=== PATIENT | male | born 1970 | race Caucasian/White ===

== ENCOUNTER 2018-06-22 12:31 | Emergency (ER) | payer MEDICARE ==
[~2018-06-22] VITALS: Ht 175.3 cm; Wt 77.1 kg
[~2018-06-22 12:31] MED LIST: NAPR500T8 PO
[2018-06-22 13:18] VITALS: BP 154/100
[2018-06-22] MEDS ORDERED: HYDROcodone/APAP 5/325MG 1 TAB TABLET PO ONE (14:30)
--- NOTE | 2018-06-22 14:55 | PHYS DOC ---
Past Medical History Past Medical History: Hypertension, Other Additional Past Medical Histor: TBI Past Surgical History: Tonsillectomy, Other Additional Past Surgical Histo: BILATERAL ANKLE Smoking: Less than 1pk/day Alcohol Use: None Drug Use: None Adult General Chief Complaint Chief Complaint: MECHANICAL FALL HPI HPI 48-year-old male presents to ER via POV with his father for mechanical fall which occurred yesterday. Patient reports he was walking into the bathroom when he lost his balance causing him to fall backwards striking his back on the bathtub. Patient reports he believes he struck the back of his head but denies having any loss of consciousness or headache. Patient's father Ed who patient resides with is at bedside who reports patient has had TBI in the past- he reports he assists with daily activity and care. He denies patient with any change in behavior or mental status. He denies patient having any confusion, vomiting, or unsteady gait. Pt has c/o lt side mid back pain reporting he struck his back on the bathtub. Patient reports it does hurt when he takes a deep breath but he denies any shortness of air, cough, spitting up blood, or chest pain. Patient's father reports patient had taken 800 mg ibuprofen this morning around 9 AM but has had no improvement in pain. Patient is a daily smoker of cigarettes. Patient's father denies he has had any type of fever, incontinence of bowel or bladder, or swelling in extremities. Review of Systems Review of Systems Constitutional: Denies fever. Denies lethargy Eyes: Denies change in visual acuity, redness, or eye pain [] HENT: Reports hitting back of head possibly on bathtub- denies SINGER, eye pain, or vision changes Respiratory: Denies cough or shortness of breath. Reports increased lt side back pain with deep breath Cardiovascular: Denies CP GI: Denies abdominal pain, nausea, vomiting. Denies incontinence of bowel/ bladder or saddle anesthesia : Denies dysuria or hematuria [] Musculoskeletal: Denies neck or joint pain. Reports lt side mid back pain Integument: Reports abrasion lt side mid back where he fell into bathtub Neurologic: Denies headache, focal weakness or sensory changes. Denies dizziness /lightheadedness Pt's father denies pt with change in MS or behavior. Denies pt with confusion All other systems were reviewed and found to be within normal limits, except as documented in this note. Current Medications Current Medications Current Medications Medications (Trade) Dose Ordered Sig/[facility] Start Time Stop Time Status Last Admin Dose Admin Acetaminophen/ Hydrocodone Bitart (Lortab 5/325) 1 tab 1X ONCE 06/22/18 14:30 06/22/18 14:31 DC 06/22/18 14:30 1 TAB Lidocaine (Lidoderm) 1 patch DAILY 06/22/18 15:00 06/22/18 15:37 DC 06/22/18 15:00 1 PATCH Allergies Allergies Allergies Coded Allergies Type Severity Reaction Last Updated Verified No Known Drug Allergies 06/22/18 No Physical Exam Physical Exam Constitutional: Well developed, well nourished, no acute distress, non-toxic appearance. Patient speaking in full clear sentences HENT: Normocephalic, no tenderness on palpation of posterior head where patient reported he possibly struck his head during fall. No visible injury on posterior head or swelling. Bilateral external ears normal, oropharynx moist, no oral exudates, nose normal. [] Eyes: 3mm PERRLA, EOMI- no pain with eye movements, conjunctiva normal, no discharge. [] Neck: Normal range of motion, no tenderness-no midline cervical tenderness on palpation or palpable deformity, supple. Trachea midline Cardiovascular:Heart rate regular rhythm, no murmur [] Lungs & Thorax: Bilateral breath sounds clear to auscultation. Initially patient was reluctant to take deep breaths due to reports of increased pain with deep breathing. With encouragement patient was able to take deep breath and air movement was audible in all lung griffith Abdomen: Bowel sounds normal, soft, no tenderness Skin: Warm, dry, no erythema, no rash. [] Back: Tender to palpation left side thoracic back with abrasion at site-no swelling or crepitus, no CVA tenderness.Full ROM of back. No midline spinal tenderness on palp. or palp. deformity Extremities: Pelvis stable and nontender. No tenderness, no cyanosis, no clubbing, ROM intact, no edema. [] Neurologic: Alert and oriented X 3, normal motor function, normal sensory function, no focal deficits noted. [] Psychologic: Affect normal, judgement normal, mood normal. [] Current Patient Data Vital Signs Vital Signs Date Time Temp Pulse Resp B/P (MAP) Pulse Ox O2 Delivery O2 Flow Rate FiO2 06/22/18 14:30 16 99 Room Air 06/22/18 13:18 98.4 104 154/100 (118) 98.4 EKG EKG [] Radiology/Procedures Radiology/Procedures PROCEDURE: CHEST PA & LATERAL Chest, 2 views, 06/22/2018: HISTORY: Fall, left upper back pain The heart size and pulmonary vascularity are normal. There are bibasilar linear parenchymal opacities suggesting scarring versus atelectasis. No pulmonary consolidation is seen. There is no evidence of pleural fluid or pneumothorax. IMPRESSION: Mild bibasilar linear scarring and/or atelectasis. Electronically signed by: Govind Whitt MD (06/22/2018 2:54 PM) [facility] DICTATED and SIGNED BY: GOVIND WHITT MD DATE: 06/22/18 5308 Course & Med Decision Making Course & Med Decision Making Pertinent Imaging studies reviewed. (See chart for details) Pt was given dose of [place] and had Lidocaine patch applied to lt mid side back while in ER. Patient has remained stable while in the ER with no change in behavior or mental status. Discussed x-ray results with patient and his father with no acute findings. Discussed plans for home discharge with patient to continue use of Tylenol and/or ibuprofen as needed for pain as directed on container. Prescription for lidocaine patches would be provided with education on use. Incentive spirometer was provided with education. Smoking cessation was discussed. Pt is able to speak in full sentences with no resp. distress. Pt has equal/nonlabored resp. and has had no cough. Education provided on s&s to return to ER for. With pt reporting he struck back of head during fall did educate pt's father on head injury precautions. With pt falling yest. and having no LOC/change in MS or c/o SINGER/dizziness discussed monitoring pt for changes with his father and he was comfortable with no head CT during this ER visit. Discharge instructions were discussed and patient to follow-up with primary care physician in next 2-3 days for reevaluation sooner with any concerns. Patient and his father both had concerns as patient was unable to sleep last night due to pain so small quantity of [place] will be provided with discharge paperwork. Education provided on medication as well as both were advised on use of walker while ambulating to prevent further falls- both advised of risk of falls with [place] and that slow position changes advised- pt' s father reports he plans to keep medication and if pt needs he would closely monitor and assist pt to avoid falls. Pt's case and plan of care was discussed with Dr. Roberson. Benjy Disclaimer Benjy Disclaimer This electronic medical record was generated, in whole or in part, using a voice recognition dictation system. Departure Departure Impression: Primary Impression: Fall Additional Impressions: Back pain Contusion Head injury Disposition: HOME, SELF-CARE Condition: STABLE Referrals: BOB CORDERO (PCP) Patient Instructions: Back Pain, Adult, Contusion, Fall Prevention and Home Safety, Head Injury, Adult, Incentive Spirometer, Smoking Cessation Additional Instructions: Use incentive spirometer as discussed. Avoid smoking cigarettes. You can take [id number] Tylenol and/or ibuprofen as directed on container for pain control. Avoid Tylenol if taking prescribed [place] tablets. Use walker when walking to avoid further falls. With any concerns return to emergency department for reevaluation or follow up with primary care physician. Scripts Lidocaine (Lidocaine) 1 Each Adh..patch 1 EACH TP q 12hrs prn, #5 PATCH 0 Refills 5% patch Prov: MAGALI CHINCHILLA APRN 06/22/18 Hydrocodone/Apap 5-325 (NORCO 5-325 TABLET) 1 Each Tablet 1 TAB PO PRN Q6HRS PRN for PAIN, #6 TAB 0 Refills Prov: MAGALI CHINCHILLA APRN 06/22/18 Problem Qualifiers MAGALI CHINCHILLA APRN Jun 22, 2018 14:55
[2018-06-22] MEDS ORDERED: LIDOCAINE (700MG/PATCH) PATCH. TD SCH (15:00)
[2018-06-22] MEDS ORDERED: HYDR-971 PO (15:17)
[2018-06-22] MEDS ORDERED: LIDO700A39 TP (15:22)
== END 2018-06-22 15:37 | disposition home or self-care (01) ==
LOC: ER 12:31
DX: S20.222A Contusion of left back wall of thorax, initial encounter (principal); S09.90XA Unspecified injury of head, initial encounter; I10 Essential (primary) hypertension; W01.198A Fall on same level from slipping, tripping and stumbling with subsequent striking against other object, initial encounter; F17.210 Nicotine dependence, cigarettes, uncomplicated; Y93.89 Activity, other specified; Y92.89 Other specified places as the place of occurrence of the external cause; Y99.8 Other external cause status
CPT/HCPCS: 71046; 99284

== ENCOUNTER 2018-10-16 09:13 | Emergency (ER) | payer MEDICARE ==
[~2018-10-16] VITALS: Ht 175.3 cm; Wt 77.1 kg
[~2018-10-16 09:13] MED LIST changes: +HYDR-3164 PO; +LIDO700A39 TP
[2018-10-16] MEDS ORDERED: IV NORMAL SALINE 1000ML BAG 1,000 ML IV ONE (09:45)
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
--- NOTE | 2018-10-16 09:54 | RAD ---
CHEST PA LATERAL History: COUGH, CONGESTION Comparison: 06/22/2018 two-view chest x-ray exam. Findings: The cardiomediastinal silhouette is normal. Pulmonary vasculature is normal. The lungs are clear. No pleural effusion or pneumothorax is seen. There is no acute bone abnormality. IMPRESSION: No acute cardiopulmonary process. Electronically signed by: Gaurang Berger MD (10/16/2018 9:51 AM) [facility]
[2018-10-16 10:19] LABS: BASO # 0.1 x10^3/uL (0.0-0.2); BASO % 1 % (0-3); EOS # 0.1 x10^3/uL (0.0-0.7); EOS % 1 % (0-3); HEMATOCRIT 45.1 % (39.0-53.0); HEMOGLOBIN 15.2 g/dL (13.0-17.5); LYMPH # 1.7 x10^3/uL (1.0-4.8); LYMPH % 16 % (24-48); MEAN CORPUSCULAR HEMOGLOBIN 28 pg (25-35); MEAN CORPUSCULAR HGB CONC 34 g/dL (31-37); MEAN CORPUSCULAR VOLUME 83 fL (79-100); MONO # 1.1 x10^3/uL (0.0-1.1); MONO % 10 % (0-9); NEUT # 7.9 x10^3uL (1.8-7.7); NEUT % 72 % (31-73); PLATELET COUNT 348 x10^3/uL (140-400); RED BLOOD COUNT 5.43 x10^6/uL (4.30-5.70); RED CELL DISTRIBUTION WIDTH 13.4 % (11.5-14.5)
--- NOTE | 2018-10-16 10:19 | EKG ---
[facility] [address] [place] [address] Test Date: 2018-10-16 Test Time: 10:01:05 Pat Name: ANGELES SHEN Department: Room: Gender: M Composition Roofer: : 1970 Requested By: BROOKE JONES Order Number: [id number] Reading MD: Darion Noonan Measurements Intervals Elizabeth Rate: 132 P: 25 OR: 118 QRS: 5 QRSD: 76 T: 15 QT: 272 QTc: 406 Interpretive Statements SINUS TACHYCARDIA Electronically Signed On 10-20-2018 8:48:08 DIRECTOR TEEN POST by Darion Noonan
[2018-10-16 10:25] LABS: CALCIUM 9.4 mg/dL (8.5-10.1); CREATININE 0.9 mg/dL (0.7-1.3); GFR 89.7; POTASSIUM 4.4 mmol/L (3.5-5.1)
[2018-10-16] MEDS ORDERED: ACETAMINOPHEN 500 MG TABLET PO ONE (10:30)
[2018-10-16] MEDS ORDERED: cefTRIAXone IV Push 1 GM VIAL. IVP ONE (10:30)
[2018-10-16 10:31] LABS: ALBUMIN 3.9 g/dL (3.4-5.0); ALBUMIN/GLOBULIN RATIO 1.1 (1.0-1.7); MAGNESIUM 1.9 mg/dL (1.8-2.4); TOTAL BILIRUBIN 0.5 mg/dL (0.2-1.0); TOTAL PROTEIN 7.3 g/dL (6.4-8.2)
[2018-10-16 10:32] LABS: INFLUENZA A PATIENT NEGATIVE (NEGATIVE); INFLUENZA B PATIENT NEGATIVE (NEGATIVE)
[2018-10-16 10:42] LABS: CREATINE KINASE 128 U/L (39-308)
[2018-10-16] MEDS ORDERED: IOHEXOL 350 MG/ML 100 ML VIAL. IV ONE (11:00)
[2018-10-16] MEDS ORDERED: CONTRAST GIVEN. MC PRN (11:00)
[2018-10-16 11:49] LABS: BILIRUBIN,URINE NEGATIVE (NEG); CLARITY,URINE CLEAR; COLOR,URINE YELLOW; NITRITE,URINE NEGATIVE (NEG); PROTEIN,URINE NEGATIVE (NEG-TRACE); UROBILINOGEN,URINE 0.2 mg/dL (0.2 mg/dL)
[2018-10-16 12:06] LABS: BACTERIA,URINE FEW /HPF (0-FEW); BARBITURATES NEG (NEG); BENZODIAZEPINES NEG (NEG); CANNABINOIDS NEG (NEG); COCAINE NEG (NEG); METHADONE NEG (NEG); OPIATES POS (NEG); PHENCYCLIDINE NEG (NEG); RBC,URINE RARE /HPF (0-2); SQUAMOUS EPITHELIAL CELL,UR OCC /LPF; WBC,URINE OCC /HPF (0-4)
[2018-10-16 12:07] LABS: AMPHETAMINE/METHAMPHETAMINE NEG (NEG)
--- NOTE | 2018-10-16 12:15 | RAD ---
Examination: CT angiography chest HISTORY: History of increased d-dimer, tachycardia, chest congestion COMPARISON: None available TECHNIQUE: Axial CT angiographic images of chest were performed with IV contrast. Coronal and Sagittal 3-D MIP reformats are performed. Exposure: One or more of the following individualized dose reduction techniques were utilized for this examination: 1. Automated exposure control 2. Adjustment of the mA and/or kV according to patient size 3. Use of iterative reconstruction technique Findings: The central airways are patent. The heart size grossly appears unremarkable. The caliber of the aorta grossly appears unremarkable. There is no contrast within the pulmonary arteries for evaluation for pulmonary embolus. Faint airspace opacities identified in the anterior right lower lobe of the lung likely atelectasis or infiltrates. No evidence of pleural effusion or pneumothorax. Mild decreased attenuation noted in the liver probably mild hepatic steatosis. The visualized spleen, right adrenal grossly appears unremarkable. There is a small nodule identified in the left adrenal gland measuring 7 mm likely small lipid rich adrenal adenoma. Mild degenerative changes thoracic spine. IMPRESSION: 1. Examination is nondiagnostic for pulmonary embolism as there is not enough contrast within the pulmonary artery and its branches. 2. Faint airspace opacities identified in the right lower lobe of the lung likely atelectasis or infiltrate. Follow-up to resolution. Electronically signed by: Stanley Poole MD (10/16/2018 12:13 PM) [facility]
[2018-10-16] MEDS ORDERED: AZIT250T PO (12:43)
[2018-10-16] MEDS ORDERED: BENZ100C PO (12:43)
[2018-10-16 13:00] VITALS: BP 137/81
[2018-10-16] MEDS ORDERED: IOHEXOL 350 MG/ML 100 ML VIAL. ONE (16:46)
== END 2018-10-16 13:08 | disposition home or self-care (01) ==
LOC: ER 09:13
DX: J02.0 Streptococcal pharyngitis (principal); B95.0 Streptococcus, group A, as the cause of diseases classified elsewhere; R00.0 Tachycardia, unspecified; R91.8 Other nonspecific abnormal finding of lung field; R79.1 Abnormal coagulation profile; I10 Essential (primary) hypertension; Z90.89 Acquired absence of other organs
CPT/HCPCS: 36415; 71046; 71275; 80053; 80307; 81001; 82553; 83735; 83880; 84443; 84484; 85025; 85379; 87804; 87880; 93005; 96374; 99284; G0480; J0696; J7030; Q9967